=== PATIENT | male | born 1970 | race Caucasian/White ===

== ENCOUNTER 2017-03-01 14:03 | Observation (INO) | payer OTHER ==
[~2017-03-01] VITALS: Ht 195.6 cm; Wt 126.6 kg
[2017-03-01 14:41] LABS: HEMOGLOBIN 15.7 gm/dl (14.0-17.5); RED BLOOD COUNT 5.15 M/UL (4.20-5.50)
[2017-03-01 15:06] LABS: BUN/CREATININE RATIO 12 (0-10)
[2017-03-01] MEDS ORDERED: SYNTHROID150 MCG PO (20:39)
[2017-03-01] MEDS ORDERED: ASPIR 8181 MG PO (20:40)
[2017-03-02 05:03] LABS: HEMOGLOBIN 15.8 gm/dl (14.0-17.5); RED BLOOD COUNT 5.23 M/UL (4.20-5.50); WHITE BLOOD COUNT 8.2 K/UL (4.5-11.0)
[2017-03-02 05:20] LABS: BUN/CREATININE RATIO 14 (0-10)
[2017-03-02] MEDS ORDERED: PROTONIX 40 MG40 M1 PO (16:04)
== END 2017-03-02 16:26 | disposition home or self-care (01) ==
LOC: ER1 14:03 → ZEROF 18:00 → MED SURG 4 18:00
PROVIDERS: Emergency Medicine; ADMIT Family Medicine
DX: R07.9 Chest pain, unspecified (principal); E03.9 Hypothyroidism, unspecified; J43.9 Emphysema, unspecified; E66.9 Obesity, unspecified; Z68.33 Body mass index [BMI] 33.0-33.9, adult; Z87.891 Personal history of nicotine dependence; Z82.49 Family history of ischemic heart disease and other diseases of the circulatory system; Z88.0 Allergy status to penicillin; Z79.899 Other long term (current) drug therapy
CPT/HCPCS: ECHO; 36415; 71020; 78452; 80053; 80061; 82550; 82553; 83874; 84439; 84443; 84484; 85025; 85027; 85379; 93005; 93017; 93306; 99285; A9502; G0378